=== PATIENT | female | born 1975 | race Hispanic/Latino ===

== ENCOUNTER 2017-05-16 23:57 | Emergency (ER) | payer SELFPAY ==
[2017-05-17] MEDS ORDERED: KETOROLAC TROMETHAMINE 60 MG/2 ML VIAL ONE (00:22)
[2017-05-17] MEDS ORDERED: ONDANSETRON ODT 4 MG TAB ONE (00:22)
[2017-05-17] MEDS ORDERED: OSELTAMIVIR PHOSPHATE 75 MG CAP ONE (00:22)
== END 2017-05-17 00:32 | disposition home or self-care (01) ==
LOC: EDH 23:57
DX: J11.1 Influenza due to unidentified influenza virus with other respiratory manifestations (principal)
CPT/HCPCS: 96372; 99283; J1885

== ENCOUNTER 2017-05-27 03:41 | Emergency (ER) | payer BC, OTHER ==
[2017-05-27] MEDS ORDERED: LIDOCAINE HCL-MPF 1% 2ML VIAL ONE (04:01)
[2017-05-27] MEDS ORDERED: CEFTRIAXONE SODIUM 1 GM ONE (04:02)
[2017-05-27] MEDS ORDERED: HYDROCODONE/ACETAMINOPHEN 7.5/325 MG 15 ML UDCUP ONE (04:15)
== END 2017-05-27 05:03 | disposition home or self-care (01) ==
LOC: EDH 03:41
DX: R10.32 Left lower quadrant pain (principal)
CPT/HCPCS: 96372; 99283; J0696; J3490